=== PATIENT | female | born 1935 | race Asian ===

== ENCOUNTER 2018-03-02 09:25 | Day surgery (SDC) | payer MEDICARE, BC, MEDICAID ==
[2018-03-02] MEDS ORDERED: PROPOFOL 20 ML (10:50)
[2018-03-02] MEDS ORDERED: LIDOCAINE 2% (SDV) 5 ML INJ (10:50)
== END 2018-03-02 15:09 | disposition home or self-care (01) ==
LOC: GIL 09:25
DX: K29.50 Unspecified chronic gastritis without bleeding (principal); K21.0 Gastro-esophageal reflux disease with esophagitis
CPT/HCPCS: 43239; 82962; 88305; 88312; 88313

== ENCOUNTER 2018-06-03 06:47 | Day surgery (SDC) | payer MEDICARE, BC ==
[2018-06-03] MEDS ORDERED: FENTAnyl 50 MCG/ML VIAL (08:21)
[2018-06-03] MEDS ORDERED: PROPOFOL 40 ML (08:21)
[2018-06-03] MEDS ORDERED: LIDOCAINE 100 MG SYRINGE (08:21)
== END 2018-06-03 12:43 | disposition home or self-care (01) ==
LOC: GIL 06:47
DX: K21.0 Gastro-esophageal reflux disease with esophagitis (principal); K29.30 Chronic superficial gastritis without bleeding; I10 Essential (primary) hypertension
CPT/HCPCS: 43239; 88305; 88312; 88313